=== PATIENT | female | born 1970 | race African-American/Black ===

== ENCOUNTER → 2019-01-27 15:21 | Outpatient (CLI) | payer OTHER ==
[~2019-01-27 15:21] MED LIST: ALBUTEROL SULF8.5 GM INH
== END | disposition home or self-care (01) ==
LOC: D.RT 15:21
PROVIDERS: ATTEND Pediatrics
DX: Z02.71 Encounter for disability determination (principal)

== ENCOUNTER 2019-02-12 18:45 | Emergency (ER) | payer MEDICAID ==
[~2019-02-12] VITALS: Ht 175.3 cm; Wt 109.1 kg
[2019-02-12 18:50] VITALS: Ht 175.3 cm; Wt 109.1 kg
[2019-02-12 19:23] LABS: BASOPHILS 0.3 % (0-2); EOSINOPHILS 0.8 % (0-7); HEMATOCRIT 36.7 % (36.0-48.0); HEMOGLOBIN 11.8 g/dL (12-16); IMMATURE GRANULOCYTES 0.6 % (0-5); LYMPHOCYTES 27.5 % (15-50); MCH 30.1 pg (26.0-34.0); MCHC 32.2 g/dL (31.0-37.0); MCV 93.6 fL (80.0-100.0); MEAN PLATELET VOLUME 11.4 fL (7.4-10.4); MONOCYTES 6.7 % (2-11); NEUTROPHILS 64.1 % (40-80); PLATELET COUNT 210 10x3/uL (130-400); RBC 3.92 10x6/uL (4.00-5.40); RDW 13.9 % (11.5-14.5); WBC 7.2 10x3/uL (4.8-10.8)
[2019-02-12 19:32] LABS: CALC OSMOLALITY 295 mosm/kg (275-300); CALCIUM 8.7 mg/dL (8.5-10.1); CARBON DIOXIDE 26.2 mmol/L (21.0-32.0); CHLORIDE - SERUM 110 mmol/L (98-107); GLUCOSE 131 mg/dL (74-106); POTASSIUM - SERUM 3.9 mmol/L (3.5-5.1); SODIUM 146 mmol/L (136-145); UREA NITROGEN 21 mg/dL (7-18); eGFR NON AFRICAN AMERICAN 63 mL/min (90-120)
[2019-02-12 19:41] LABS: APTT 31.3 SECONDS (22.8-39.4); PROTIME 12.7 SECONDS (11.6-15.0)
[2019-02-12 19:49] LABS: ALBUMIN 3.2 g/dL (3.4-5.0); ALKALINE PHOSPHATASE 121 U/L (46-116); ALT (SGPT) 13 U/L (10-68); BILIRUBIN - TOTAL 0.39 mg/dL (0.2-1.3); CKMB 0.2 U/L (0.0-3.6); CREATINE KINASE 58 UL (21-215); PRO BNP 31 pg/mL (0-125); PROTEIN - SERUM 7.8 g/dL (6.4-8.2); TROPONIN-I < 0.017 ng/mL (0.000-0.060)
[2019-02-12] MEDS ORDERED: ALBUTEROL SULF8.5 GM INH (20:04)
[2019-02-12 20:38] VITALS: BP 121/87
== END 2019-02-12 20:39 | disposition home or self-care (01) ==
LOC: D.ER 18:45
PROVIDERS: Emergency Medicine
DX: R06.09 Other forms of dyspnea (principal); Z87.898 Personal history of other specified conditions

== ENCOUNTER 2019-05-15 08:00 | Outpatient (CLI) | payer OTHER ==
[2019-02-12 18:50] VITALS: BMI 35.5
== END 2019-05-15 23:59 | disposition home or self-care (01) ==
LOC: D.MAMMO 08:00
PROVIDERS: ATTEND Nurse Practitioner Family
DX: Z12.31 Encounter for screening mammogram for malignant neoplasm of breast (principal)

== ENCOUNTER → 2020-07-01 08:38 | Outpatient (CLI) | payer OTHER ==
[2019-02-12 18:50] VITALS: BMI 35.5
== END | disposition home or self-care (01) ==
LOC: D.RT 08:00
PROVIDERS: ATTEND Nurse Practitioner
DX: R06.02 Shortness of breath (principal)

== ENCOUNTER 2020-09-12 14:25 | Outpatient (CLI) | payer OTHER ==
[2019-02-12 18:50] VITALS: BMI 35.5
== END 2020-09-12 23:59 | disposition home or self-care (01) ==
LOC: D.MAMMO 14:25
PROVIDERS: ATTEND Nurse Practitioner
DX: Z12.31 Encounter for screening mammogram for malignant neoplasm of breast (principal)